=== PATIENT | female | born 1945 | race Caucasian/White ===

== ENCOUNTER 2022-10-16 15:50 | Observation (INO) | payer MEDICARE, OTHER ==
[2022-10-16] MEDS ORDERED: Sodium Chloride 0.9% 10 ML Syringe FLUSH PRN (16:01)
[2022-10-16 16:36] LABS: BASOPHILS ABSOLUTE AUTO 0.02 K/mm3 (0.01-0.08); BASOPHILS PERCENT AUTO 0.4 % (0.1-1.2); EOSINOPHILS ABSOLUTE AUTO 0.07 K/mm3 (0.04-0.36); EOSINOPHILS PERCENT AUTO 1.4 (0.7-5.8); HEMATOCRIT 40.6 % (34.1-44.9); HEMOGLOBIN 12.9 gm/dl (11.2-15.7); LYMPHOCYTES ABSOLUTE AUTO 1.11 K/mm3 (1.18-3.74); LYMPHOCYTES PERCENT AUTO 21.5 % (19.3-51.7); MEAN CORPUSCULAR HEMOGLOBIN 28.9 pg (25.6-32.2); MEAN CORPUSCULAR HGB CONC 31.8 g/dl (32.2-35.5); MONOCYTES ABSOLUTE AUTO 0.41 K/mm3 (0.24-0.36); MONOCYTES PERCENT AUTO 7.9 % (4.7-12.5); NEUTROPHILS ABSOLUTE AUTO 3.55 K/mm3 (1.56-6.13); NEUTROPHILS PERCENT AUTO 68.8 % (34.0-71.1); PLATELET COUNT,PLT 264 K/mm3 (182-369); RED BLOOD CELL COUNT 4.46 M/mm3 (3.98-5.22); WHITE BLOOD CELL COUNT,WBC 5.16 K/mm3 (3.98-10.04)
[2022-10-16] MEDS ORDERED: Ondansetron 4 MG/2 ML SDV IVPUSH ONE (17:09)
[2022-10-16 17:16] LABS: ALANINE AMINOTRANSFERASE,ALT 41 U/L (14-59); ALBUMIN 3.6 g/dl (3.4-5.0); ALKALINE PHOSPHATASE 55 U/L (46-116); ANION GAP 11.7 (5-15); ASPARTATE AMNIOTRANSFERASE,AST 38 U/L (15-37); BILIRUBIN TOTAL 0.4 mg/dL (0.2-1.0); BLOOD UREA NITROGEN,BUN 24 mg/dL (7-18); CARBON DIOXIDE,CO2 25 mEq/L (21-32); CHLORIDE,CL 106 mEq/L (98-107); CREATINE KINASE,CK 96 U/L (26-192); CREATININE 0.8 mg/dL (0.55-1.02); ESTIMATED GFR 76 mL/min (>60); GLUCOSE RANDOM 109 mg/dL (70-99); MAGNESIUM 2.1 mg/dL (1.8-2.4); POTASSIUM,K 3.7 mEq/L (3.5-5.1); PROTEIN TOTAL,TP 7.3 g/dl (6.4-8.2); SODIUM,NA 139 mEq/L (136-145); TROPONIN I HIGH SENSITIVITY 15 pg/mL (<=51); TSH 1.781 uIU/mL (0.358-3.74)
[2022-10-16 17:21] LABS: CORONAVIRUS COVID-19 NAA NEGATIVE (NEGATIVE); INFLUENZA A NAA NEGATIVE (NEGATIVE); RESPIRATORY SYNCYTIAL VIR NAA NEGATIVE (NEGATIVE)
[2022-10-16] MEDS ORDERED: Sodium Chloride 0.9% 1,000 ML IV SCH ×2 (17:30→22:30)
[2022-10-16] MEDS ORDERED: Metoclopramide 10 MG/2 ML SDV IVPUSH ONE (17:36)
[2022-10-16] MEDS ORDERED: Pantoprazole 40 MG Vial IVPUSH ONE (17:37)
[2022-10-16 17:43] LABS: INR 1.02; PROTHROMBIN TIME 10.9 SECONDS (9.7-12.0)
[2022-10-16] MEDS ORDERED: Polyethylene Glycol 3350 Powder 17 GM Packet PO ONE (19:16)
[2022-10-16] MEDS ORDERED: Acetaminophen 325 MG Tab PO PRN (19:16)
[2022-10-16] MEDS ORDERED: Lactated Ringers 1,000 ML IV SCH (19:30)
[2022-10-16 20:49] LABS: APPEARANCE,URINE SLT CLOUDY (Clear); BILIRUBIN,URINE NEGATIVE (Negative); COLOR,URINE YELLOW (Yellow); GLUCOSE,URINE NEGATIVE (Negative); KETONES,URINE 3+ (Negative); LEUKOCYTE ESTERASE,URINE NEGATIVE (Negative); NITRITE,URINE NEGATIVE (Negative); OCCULT BLOOD,URINE NEGATIVE (Negative); PH,URINE 6.5 (5.0-8.0); PROTEIN,URINE NEGATIVE (Negative); UROBILINOGEN,URINE 0.2 (0.2-1.0)
[2022-10-16 21:04] LABS: BARBITURATE SCREEN,URINE NEGATIVE (CUTOFF=200); BENZODIAZEPINES SCREEN,URINE NEGATIVE (CUTOFF=150); BUPRENORPHINE SCREEN,URINE NEGATIVE (CUTOFF=10); METHADONE SCREEN, URINE NEGATIVE (CUTOFF=200); METHAMPHETAMINES SCREEN, URINE NEGATIVE (CUTOFF=500); OXYCODONE SCREEN,URINE NEGATIVE (CUT0FF=100); PROPOXYPHENE SCREEN,URINE NEGATIVE (CUTOFF=300); THC SCREEN,URINE 20 NG/ML NEGATIVE (CUTOFF=50)
[2022-10-16 21:09] LABS: AMPHETAMINES SCREEN, URINE NEGATIVE (CUTOFF=500)
[2022-10-17] MEDS ORDERED: Sodium Chloride 0.9% 1,000 ML ONE (16:38)
[2022-10-17] MEDS ORDERED: Ondansetron 4 MG/2 ML SDV ONE (16:48)
== END 2022-10-17 12:56 | disposition home or self-care (01) ==
LOC: JD.ED 15:50 → JD.MS 19:17
PROVIDERS: ADMIT Emergency Medicine; ATTEND Emergency Medicine
DX: K59.00 Constipation, unspecified (principal); R51.9 Headache, unspecified; R10.9 Unspecified abdominal pain; K57.30 Diverticulosis of large intestine without perforation or abscess without bleeding; I10 Essential (primary) hypertension; E78.00 Pure hypercholesterolemia, unspecified; I44.4 Left anterior fascicular block; Z79.899 Other long term (current) drug therapy; Z20.822 Contact with and (suspected) exposure to COVID-19; Z90.710 Acquired absence of both cervix and uterus
CPT/HCPCS: 0241U; 36415; 70450; 71250; 74176; 80053; 80306; 80307; 81003; 82550; 83605; 83735; 83880; 84443; 84484; 85025; 85610; 85730; 86850; 86900; 86901; 93005; 94762; 96361; 96374; 96375; 99285; A9270; C9113; G0378; J2405; J3490; J7030; 93010